=== PATIENT | male | born 1950 | race Caucasian/White ===

== ENCOUNTER → 2016-07-15 | Outpatient (CLI) | payer MEDICARE ==
[~2016-07-15] VITALS: Ht 185.4 cm; Wt 116.8 kg
[~2016-07-15] MED LIST: ALBUTEROL SULFATE 2.5 MG/0.5 ML INH NEB SOLN As Ordered ONE; ATOR40TA PO; D400400C PO; D5W 1,000 ML IV SCH; DULO1CAP2 PO; EPINEPHrine 1MG/10ML SYRINGE 1.5IN As Ordered ONE; FENO134C PO; HUMA100I3 SC; ISOS30TA4 PO; LIDOCAINE 1% MDV 20ML VIAL As Ordered ONE; LIDOCAINE VISCOUS 2% SOLN 15ML UDC As Ordered ONE; LIPI20TA PO; LISI20TA PO; METO-207 PO; MIDAZOLAM INJ 2 MG/2 ML VIAL (J2250) As Ordered ONE; NEUR100C PO; NITR4TASL SL; NORT50CA PO; OMEP40CA2 PO; PLAV75TA38 PO; PROA1AER INH; SPIR1CAP INH; THROMBIN SOLN 5,000 UNITS VIAL As Ordered ONE; TOUJ1.2I SC; VICT18IN SC; fentaNYL 100 MCG/2 ML INJECTION (J3010) As Ordered ONE
--- NOTE | 2016-07-15 08:36 | RO ---
DATE OF PROCEDURE: 07/15/2016 PREOPERATIVE DIAGNOSIS: Right lung mass. POSTOPERATIVE DIAGNOSIS: Right lung mass with chronic bronchitis. PROCEDURE: Fiberoptic bronchoscopy with washes, brushes, biopsies and photos. SURGEON: Dr. Bismark Reed DIRECT RESPONSE CONSULTANT: ANESTHESIA: Conscious sedation with 5 mg of Versed and 75 mcg of Fentanyl given intravenously and titrated for effect. Local anesthesia was 2% viscous Xylocaine in the nose, Cetacaine Chalmers in the pharynx and 1% Xylocaine via the bronchoscope. OTHER MEDICATIONS: Thrombin 5000 units given via the bronchoscope. Informed consent was obtained prior to the procedure. PROCEDURE: After the patient was identified and the above anesthesia given, the fiberoptic bronchoscope was easily passed via the right nares. The hypopharynx was entered. A large amount of redundant tissue was identified. Thick tenacious secretions were pooled throughout the hypopharynx and were suctioned clear. The vocal cords moved well. Trachea was entered. Widely patent. Sheela was sharp and moved well. Left lung entered first. Diffuse changes of chronic bronchitis were noted with thick secretions suctioned clear. Right lung was then entered. Upper, middle and lower lobes easily identified and widely patent. Diffuse changes of chronic bronchitis were noted. No endobronchial lesions immediately identifiable. Under fluoroscopic guidance, however, the abnormality seen on CT scan was easily identified. Washes, brushes, and transbronchial biopsies times two were taken. Some bleeding was encountered. It was easily controlled with topical saline lavage and topical Thrombin. When adequate hemostasis was achieved, the scope was withdrawn and the procedure terminated. The patient tolerated the procedure well. Fluoroscopy time total 43 seconds. Fluoroscopic examination done immediately postprocedure does not show any evidence of pneumothorax. Chest x-ray is ordered for one hour. The patient was taken to the recovery area in good and stable condition. No immediate complications of conscious sedation were identified.
[2016-07-15 09:12] VITALS: BP 124/86
--- NOTE | 2016-07-15 10:04 | REP ---
Portable chest x-ray: Sitting PA views. Two views presented. History: Post procedure question pneumothorax. No comparison chest imaging. Findings: There is an ill-defined rounded mass-like density in the right lower lobe region measuring approximately 5.3 cm. There is no evidence of pneumothorax or hydrothorax. Oxygen tubing is seen. Heart is not enlarged. Lung solomon are otherwise clear. Impression: 5.3 cm mass in the right lung base. No pneumothorax seen. Signed by Kevin Solis MD 07/15/2016 10:24 A
== END | disposition home or self-care (01) ==
LOC: M OPP 06:49
PROVIDERS: ATTEND Internal Medicine Pulmonary Disease
DX: C34.31 Malignant neoplasm of lower lobe, right bronchus or lung (principal); J42 Unspecified chronic bronchitis; E78.00 Pure hypercholesterolemia, unspecified; I10 Essential (primary) hypertension; K31.84 Gastroparesis; E11.40 Type 2 diabetes mellitus with diabetic neuropathy, unspecified; F17.218 Nicotine dependence, cigarettes, with other nicotine-induced disorders; J96.11 Chronic respiratory failure with hypoxia; Z88.8 Allergy status to other drugs, medicaments and biological substances; Z79.51 Long term (current) use of inhaled steroids; Z79.899 Other long term (current) drug therapy
CPT/HCPCS: 31623; 31628; 71010; 76000; 87070; 87077; 87102; 87116; 87186; 87205; 87206; 88104; 88305; J2250; J3010

== ENCOUNTER → 2016-07-16 | Outpatient (CLI) | payer MEDICARE ==
[~2016-07-16] MED LIST changes: -ALBUTEROL SULFATE 2.5 MG/0.5 ML INH NEB SOLN As Ordered ONE; -D5W 1,000 ML IV SCH; -EPINEPHrine 1MG/10ML SYRINGE 1.5IN As Ordered ONE; -LIDOCAINE 1% MDV 20ML VIAL As Ordered ONE; -LIDOCAINE VISCOUS 2% SOLN 15ML UDC As Ordered ONE; -MIDAZOLAM INJ 2 MG/2 ML VIAL (J2250) As Ordered ONE; -THROMBIN SOLN 5,000 UNITS VIAL As Ordered ONE; -fentaNYL 100 MCG/2 ML INJECTION (J3010) As Ordered ONE
--- NOTE | 2016-07-16 16:34 | REP ---
CERVICAL SPINE, NINE VIEWS: HISTORY: Radiculopathy. The cervical spine is visualized from C1 to the C5-6 level in the lateral radiographs. There is no acute fracture or subluxation. The C3-4 through C5-6 intervertebral discs are decreased in height consistent with disc degeneration. There is narrowing of the C3 through 6 neural foramina secondary to uncinate process hypertrophy. IMPRESSION: Degenerative change as described above.
== END ==
LOC: M CLY 14:40
PROVIDERS: ATTEND Family Medicine
DX: M54.12 Radiculopathy, cervical region (principal)

== ENCOUNTER → 2016-07-28 | Outpatient (CLI) | payer MEDICARE ==
--- NOTE | 2016-07-29 10:02 | REP ---
PET/CT: History: Staging non-small cell carcinoma of the lung. Comparisons: Comparison chest x-ray July 15, 2016. Report of a CT study of the chest from [facility] dated June 30, 2016 describes two right lower lobe masses measuring 4.5 and 0.8 cm. Images from this CT study are not available at the time of this dictation. TECHNIQUE: 72 minutes following the intravenous injection of a 8.4 mCi dose of F-18 FDG, three-dimensional PET scintigraphy is acquired from the skull base to the proximal thighs. Triplanar noncontrast CT scanning is acquired through the same anatomic range for attenuation correction, and image registration with scan parameters optimized to minimize radiation exposure to the patient. PET scintigraphy and CT datasets were fused and displayed on a workstation with multiplanar and projection display capability. PET/CT Findings: The large mass in the right lower lobe is hypermetabolic. Maximum standard uptake value within it is 15.3. There is hypermetabolic uptake in a small right hilar lymph node with maximum SUV value 9.0 consistent with metastasis. There is hypermetabolic navin uptake in the subcarinal lymph node with maximum standard uptake value 19.5. No other pulmonary parenchymal hypermetabolic uptake is seen. Today's CT shows a posterior pleural nodule versus plaque in the right lower lobe which shows no discernible FDG accumulation. This measures 6 mm. The head and neck soft tissues are unremarkable. No adrenal hypermetabolic uptake is seen. In the abdomen and pelvis, there is normal hepatic, splenic, gastrointestinal, and genitourinary FDG accumulation. No other abnormal hypermetabolic uptake is appreciated. Impression: The malignant mass in the right lower lobe is quite hypermetabolic and there is evidence of right hilar and subcarinal lymph node metastatic disease. Signed by Kevin Solis MD 07/29/2016 01:54 P
== END ==
LOC: M RAD 14:16
PROVIDERS: ATTEND Internal Medicine Pulmonary Disease
DX: C34.90 Malignant neoplasm of unspecified part of unspecified bronchus or lung (principal)
CPT/HCPCS: 78815; A9552

== ENCOUNTER → 2016-07-30 | Outpatient (CLI) | payer MEDICARE ==
--- NOTE | 2016-07-30 15:55 | REP ---
MRI CERVICAL SPINE WITHOUT CONTRAST: 07/30/2016. Comparison: MRI 04/30/2011, x-ray 07/16/2016. Clinical history: Neck pain, cervical radiculopathy. Technique: Axial T1 and T2 with sagittal T1, T2 and STIR sequences provided. Findings: Straightening of the spine on the sagittal views indicating spasm. The reversal of the cervical lordosis in the upper cervical spine is less than on the previous study. The marrow signal from C2 through T2 was unremarkable. There is disc space narrowing at C5-6, C6-7 and less at C3-4, but there is loss of disc water signal at all levels. The cervical cord shows no intrinsic signal abnormality, syrinx, atrophy or mass. There is ample subarachnoid space at the craniocervical junction with no cerebellar tonsillar ectopia. No intrinsic signal abnormality, syrinx, atrophy or mass in the cervical cord. At C2-3, some hypertrophic spurring the uncovertebral joints with foraminal encroachment on the right, marginal on the left. No central canal stenosis. At C3-4, broad-based disc bulge flattening ventral thecal sac, obliterating the subarachnoid space and with an AP canal diameter 7.3 mm in the midline representing central canal stenosis. There is foraminal encroachment bilaterally, left greater than right due to combined factors. At C4-5, there is also a broad-based disc bulge with foraminal encroachment due to uncinate facet spurs. The AP canal diameter is narrowed with loss of the subarachnoid space and the AP canal is 8 mm. At C5-6, mild diffuse disc bulge is again seen thinning the ventral subarachnoid space. It does not cause cord compression. AP canal diameter is 8 mm. The foramina show encroachment on both sides, right slightly greater than left due to uncinate and facet spurs. At C6-7, there is broad-based disc bulge with thinning of the ventral subarachnoid space. AP canal diameter is nearly 9 mm, not significantly stenotic. There is foraminal encroachment, left greater than right due to facet arthritis. At C7-T1, I do not see disc bulge or herniation. Mild spurring at the uncovertebral joint on the left, but not the right. No definite stenosis. Impression: 1. Cervical spondylosis with disc disease from C3-4 through C6-7 inclusive with uncinate spurs and facet arthritis at all levels. Foraminal encroachment noted more left than right at multiple levels with bilateral at several. Stenosis greatest at C5-6 and C3-4. No intrinsic cord signal abnormality, syrinx, atrophy or mass. Signed by Booker Izaguirre MD 07/30/2016 04:47 P
== END ==
LOC: M RAD 12:08
PROVIDERS: ATTEND Family Medicine
DX: M54.12 Radiculopathy, cervical region (principal)

== ENCOUNTER → 2016-08-03 | Outpatient (REF) | payer MEDICARE ==
[2016-08-03 18:21] LABS: INR 0.92
== END ==
LOC: M LAB REF 16:33
PROVIDERS: ATTEND Internal Medicine Medical Oncology
DX: C34.90 Malignant neoplasm of unspecified part of unspecified bronchus or lung (principal)

== ENCOUNTER → 2016-08-09 | Outpatient (CLI) | payer MEDICARE ==
--- NOTE | 2016-08-09 13:16 | REP ---
MRI BRAIN WITHOUT AND WITH CONTRAST: HISTORY: Lung cancer. CONTRAST: ProHance 22 mL. Scattered punctate areas of increased signal intensity on T2-weighted images are present in the periventricular and subcortical white matter. This represents small vessel ischemic disease. There is no intraparenchymal hemorrhage, infarct, mass or midline shift. The sella turcica is partially empty. There is no abnormal enhancement. The ventricular system and cortical sulci as well as subarachnoid space in the posterior fossa are dilated consistent with mild volume loss. There is no extracerebral collection. Mucosal thickening is present in the right ethmoid and maxillary sinuses. IMPRESSION: 1. Minimal small vessel ischemic disease. 2. Mild volume loss. Signed by Praveen Cano MD 08/09/2016 01:17 P
== END ==
LOC: M RAD 07:41
PROVIDERS: ATTEND Internal Medicine Medical Oncology
DX: C34.90 Malignant neoplasm of unspecified part of unspecified bronchus or lung (principal)
CPT/HCPCS: 70553; A9576

== ENCOUNTER → 2016-08-10 | Outpatient (CLI) | payer MEDICARE ==
--- NOTE | 2016-08-17 13:43 | RADONC ---
RADIATION ONCOLOGY CONSULTATION NOTE DATE: 08/10/2016 CHART NUMBER: [id number] DIAGNOSIS: Right lung cancer. STAGE: IIIA. ECOG PERFORMANCE STATUS: 4 CONSULTATION NOTE: Mr. Soto is a very pleasant 66-year-old white male with the diagnosis of what appears to be at least a stage IIIA non-small cell right lower lobe cancer with hilar and mediastinal lymphadenopathy, who is presenting to us today on 4 liters of nasal oxygen for discussion of external beam radiation therapy as a therapeutic option. HISTORY OF PRESENT ILLNESS The patient was in his usual state of health and has been having increasing shortness breath. He had a chest x-ray done at [facility] which revealed a new mass in the right lower lobe. That was done 05/2016. On 06/30/[address] of the chest was done and revealed two right lower lobe masses consistent with primary bronchogenic carcinoma. No mediastinal lymphadenopathy was appreciated. The right lower lobe mass measured 4.5 cm. The other was a noncalcified nodule in the dome of the right hemidiaphragmatic area. The patient underwent transbronchial biopsy on 07/15/2016 and the cells were found to be positive for malignancy consistent with a non-small cell carcinoma. On 07/28/2016, the patient underwent a PET scan which showed a hypermetabolic uptake with an SUV value of 9.0 in the right hilar lymph nodes. This was consistent with metastatic disease. There was hypermetabolic and navin uptake in the subcarinal node measuring 19.5 SUV value. In addition, there was the hypermetabolic initial primary site. The other small nodule showed no evidence of hypermetabolic activity. No evidence of widely metastatic disease was seen. Pulmonary function tests were done and the patient has an FEV value of 1.4, which is 35% of predicted. His diffusion capacity is only 42% of predicted. Oxygen saturation on 4 liters of oxygen is 97%. On room air, it drops to 91% sitting, no exertion. The patient reports that he is short of breath if he does anything or exerts himself whatsoever. PAST MEDICAL HISTORY: The patient's past medical history is positive for arthritis, coronary stents, hypertension, diabetes, asthma. He reported that he had some hiatal hernia 11 years ago. ALLERGIES: The patient is allergic to: 1. METFORMIN. 2. LYRICA. SOCIAL HISTORY: He has smoked one pack of cigarettes per day for 52 years. He does not abuse alcohol. FAMILY HISTORY: The patient's family history is positive for a mother with ovarian cancer, a father with lung cancer and a sister with ovarian cancer. REVIEW OF SYSTEMS: The patient's review of systems is positive for some headaches, decreased energy, hearing loss, generalized aches and pains. He denies nausea, vomiting, fevers, chills, night sweats, diplopia, chest pain, urinary or bowel difficulties or bone pain. PHYSICAL EXAMINATION: The patient is a well-developed, well-nourished male in no acute distress. HEENT exam is normocephalic, atraumatic. Extraocular movements are intact. There is no palpable cervical, supraclavicular, infraclavicular, axillary, or inguinal lymphadenopathy present. Lungs reveal distant breath sounds bilaterally. Heart has a regular rate and rhythm. Abdomen is benign with no hepatosplenomegaly, masses, or tenderness. Skeletal examination reveals no tenderness to pressure or percussion of the bony skeleton. Extremities reveal no clubbing, cyanosis, or edema. Neurologic exam is grossly intact as is the remainder of the physical examination. ASSESSMENT: Mr. Soto is presenting to us today for consideration of external beam radiation therapy to his right lung and mediastinum as part of a combined approach with chemotherapy. Unfortunately, I am quite concerned with the patient's breathing ability. He presently requires 4 liters of nasal oxygen and still is short of breath and limited in any physical activity. He has a poor FEV-1 as well as diffusion capacity. I do not at this time think the patient would be able to tolerate radiation. Prior to making a final decision. I have ordered a differential lung scan. The patient will be returning to me after that lung scan for further discussion. In addition, I am setting him up for discussion at our multidisciplinary tumor conference. The chance of curing this are very small even with radiation. I am quite concerned as to the destruction of any residual quality of life we may cause. Once again, I await the results of his differential lung scan. Should we be surprised by good results, we will be glad to reconsider radiation at that time. cc: MD Ishaan Mann MD
== END ==
LOC: M ONCR 13:14
PROVIDERS: ATTEND Radiology Radiation Oncology
DX: C34.90 Malignant neoplasm of unspecified part of unspecified bronchus or lung (principal)

== ENCOUNTER → 2016-08-13 | Outpatient (CLI) | payer MEDICARE ==
--- NOTE | 2016-08-13 11:05 | REP ---
Clinical: Lung cancer. Technique: PA and lateral. Comparison: 07/15/2016. Findings: 5 cm right lower lobe lung mass is again identified. Mediastinum and cardiac silhouette are normal. Hilar adenopathy cannot be excluded. No consolidation, effusion, or pneumothorax. Skeletal structures intact. Impression: 5 cm right lower lobe mass. Cannot exclude hilar adenopathy. Signed by Ramon Corrales MD 08/13/2016 10:56 A
--- NOTE | 2016-08-13 12:42 | REP ---
. No clot pulmonary differential lung function: The study is performed initially with intravenous MAA radiolabeled with 1 mCi of technetium 99m for lung perfusion. This is followed by DTPA aerosol radiolabeled with 2 mCi of technetium 99m for the ventilation phase of the study. Perfusion: 63.20% of total lung perfusion is from the right lung. 36.80% is from the left lung. Ventilation 60.70% of total lung ventilation is from the right lung. 39.22% is from the left lung. According to a whole body PET / CT scan dated 07/28/2016, the patient has a right lower lobe mass and right hilar and subcarinal lymphadenopathy. Signed by Brian Eubanks MD 08/13/2016 12:34 P
== END ==
LOC: M RAD 10:03
PROVIDERS: ATTEND Radiology Radiation Oncology
DX: C34.90 Malignant neoplasm of unspecified part of unspecified bronchus or lung (principal)
CPT/HCPCS: 71020; 78598; A9540; A9567

== ENCOUNTER → 2016-08-16 | Outpatient (CLI) | payer MEDICARE ==
[~2016-08-16] MED LIST changes: +ACETAMINOPHEN 325 MG TAB As Ordered ONE; +LIDOCAINE 1% MDV 20ML VIAL As Ordered ONE
--- NOTE | 2016-08-16 11:43 | REP ---
POST-BIOPSY EXPIRATORY PA CHEST: 08/16/2016. Clinical history: Status post transthoracic needle biopsy right lower lobe mass. Evaluate for pneumothorax. Tiny extrapleural air on decubitus view right base adjacent to the lung mass. This was improving over time during the biopsy procedure. Comparison: CT guided transthoracic needle biopsy images today, chest x-ray 08/13/2016. Findings: Right lower lobe mass is again seen unchanged. I cannot discern a definite apical pneumothorax. A pleural line along the right lateral base is noted which may reflect a tiny pneumothorax seen on the CT. The lung mass shows some adjacent haziness likely from intraparenchymal hematoma. There is no pleural effusion. Left lung remains clear. No other finding or change. Impression: 1. Trace extrapleural air along the inferior right lateral base, lateral to the right lower lobe mass. This was not present on the x-ray 3 days ago and is seen on the decubitus position CT today during the biopsy procedure. It is at best a couple of millimeters. No other finding or change. Repeat PA expiratory chest in 2 hours. Signed by Booker Izaguirre MD 08/16/2016 05:18 P
--- NOTE | 2016-08-16 13:24 | REP ---
POST-BIOPSY PA CHEST: 08/16/2016. Clinical history: Status post transthoracic CT guided needle biopsy right lower lobe mass. A tiny extrapleural air collection right lateral base. Comparison: Immediate postprocedure chest x-ray 2 hours ago. Findings: Mass is unchanged. There is no visible pneumothorax or other significant interval change. The patient may be discharged. Signed by Booker Izaguirre MD 08/16/2016 05:20 P
--- NOTE | 2016-08-16 16:37 | REP ---
CT GUIDED RIGHT LOWER LOBE LUNG BIOPSY: The procedure was performed under the direct supervision of Dr. Izaguirre. The patient has a history of a malignant mass in the right lower lobe which is quite hypermetabolic seen on a previous PET scan performed on 07/28/2016. The risks and benefits of the procedure were explained to the patient and informed consent was obtained. The right lower lobe lung mass was localized using CT guidance. The skin was prepped and draped in a sterile fashion. 1% Xylocaine was used as a local anesthetic. Using CT guidance a 19/20-gauge coaxial needle biopsy system was inserted and then advanced into the mass. 4 core biopsy samples were obtained and sent to the lab. The patient tolerated the procedure well and there were no immediate complications. After the appropriate amount of monitored convalescence the patient was discharged from the department. Reviewed by ZEE Mckeon 08/17/2016 04:31 PEdited and Signed by Booker Izaguirre MD 08/17/2016 05:24 P
== END | disposition home or self-care (01) ==
LOC: M RADPRO 09:26
PROVIDERS: ATTEND Internal Medicine Medical Oncology
DX: C34.91 Malignant neoplasm of unspecified part of right bronchus or lung (principal); R91.8 Other nonspecific abnormal finding of lung field; Z79.899 Other long term (current) drug therapy; Z79.4 Long term (current) use of insulin; Z88.8 Allergy status to other drugs, medicaments and biological substances

== ENCOUNTER → 2016-09-02 | Outpatient (REF) | payer MEDICARE ==
[~2016-09-02] MED LIST changes: -ACETAMINOPHEN 325 MG TAB As Ordered ONE; -LIDOCAINE 1% MDV 20ML VIAL As Ordered ONE
== END ==
LOC: M LAB REF 09:00
PROVIDERS: ATTEND Internal Medicine Medical Oncology
DX: C34.91 Malignant neoplasm of unspecified part of right bronchus or lung (principal)

== ENCOUNTER → 2016-10-06 | Outpatient (REF) | payer MEDICARE ==
[2016-10-06 17:59] LABS: INR 0.91
== END ==
LOC: M LAB REF 17:10
PROVIDERS: ATTEND Internal Medicine Medical Oncology
DX: C34.90 Malignant neoplasm of unspecified part of unspecified bronchus or lung (principal); Z79.01 Long term (current) use of anticoagulants

== ENCOUNTER → 2016-10-19 | Outpatient (CLI) | payer MEDICARE ==
[~2016-10-19] MED LIST changes: +LIDOCAINE W/EPINEPHRINE 1% 20ML VIAL As Ordered ONE; +SODIUM BICARBONATE 8.4% INJ 50MEQ 50 ML VIAL As Ordered ONE; +ceFAZolin 1GM INJ (J0690) As Ordered ONE; +fentaNYL 100 MCG/2 ML INJECTION (J3010) As Ordered ONE
--- NOTE | 2016-10-19 16:19 | REPKIM ---
CLINICAL HISTORY: Lung ca. The referring service has asked a chest infuse-a- port placement for chemotherapy. PROCEDURE PERFORMED: Placement of totally implantable venous access device under combined sonographic and fluoroscopic guidance INTERVENTIONALIST: Jacki Dang MD SLITTER SCORER CUT OFF OPERATOR: LAUREN Durant IV CONSENT: The risks, benefits and alternatives to the procedure were explained to the patient and informed written consent was obtained. MEDICATIONS: Local Lidocaine, Ancef 1g IV and Fentanyl 25 mcg IV. Independent trained observer was present during the entire duration for monitoring. EBL: 10 mL FLUORO TIME: 0.5 minutes DEVICE USED: Bard Port 8-Faroese, Single-Lumen Lot#[id number] PROCEDURE/FINDINGS: The patient was brought to the interventional radiology suite and was positioned supine on the table. Time out procedure was performed. Real time ultrasound was used and permanent image stored. The right IJ vein is patent and compressible. Using ultrasound guidance the internal jugular vein was accessed with a micropuncture needle, after infiltration of the skin and deep tissues with local anesthetic. A peel-away sheath was placed. The catheter tip was inserted via the sheath under controlled respiration. The sheath was removed, and the catheter was flushed with heparinized saline and clamped. Next attention was turned to creation of a subcutaneous pocket for the port along the upper chest. The overlying skin and deep tissues were infiltrated with local anesthetic. A transverse skin incision was made long enough to accommodate the reservoir, and using blunt dissection a subcutaneous pocket was created. A tunnel was created from the pocket to the access site. A clamp was advanced from the pocket incision to the venous access site and used to grasp the free end of the catheter and pull it through to the pocket incision. The catheter was trimmed, attached to the reservoir, and flushed with heparinized saline. The reservoir was inserted into the pocket and secured with 2-0 absorbable sutures. The deep tissue was closed with interrupted 2-0 Vicryl suture. The skin incision was closed with a running subcuticular suture of 4-0 Vicryl. The venotomy incision was closed with 4-0 Vicryl suture. Mastisol and Steri-Strips were applied. The port was then accessed and Heparin (100 units/mL concentration) locked in the port. A sterile dressing was then applied. Post procedure chest spot film radiograph showed the tip of the catheter is at the cavoatrial junction. The patient tolerated the procedure well with no immediate complications. This procedure was performed using ultrasound and fluoroscopy. Dr. Dang was present. IMPRESSION: 1. The right IJ vein is patent and compressible. 2. Successful placement of right IJ chest port placement as discussed above. The chest [id number] is ready for use. cc: Onel Rizzo MD [facility] MEDICAL CENTERLiya
== END | disposition home or self-care (01) ==
LOC: M IRPRO 12:19
PROVIDERS: ATTEND Internal Medicine Medical Oncology
DX: C34.90 Malignant neoplasm of unspecified part of unspecified bronchus or lung (principal)
CPT/HCPCS: 36561; 76937; 77001; C1788; C1894; J0690; J3010